=== PATIENT | female | born 1950 | race Caucasian/White ===

== ENCOUNTER 2020-11-24 18:54 | Emergency (ER) | payer MEDICARE, OTHER ==
[~2020-11-24] VITALS: Ht 165.1 cm; Wt 57.3 kg
[2020-11-24] MEDS ORDERED: VALT500T PO (19:04)
[2020-11-24] MEDS ORDERED: FORT600S SC (19:04)
[2020-11-24] MEDS ORDERED: IBUP-1114 PO (19:05)
--- NOTE | 2020-11-24 20:37 | REPVR ---
PROCEDURE INFORMATION: Exam: CT Head Without Contrast Exam date and time: 11/24/2020 8:04 PM Age: 70 years old Clinical indication: Injury or trauma; Fall; Blunt trauma (contusions or hematomas); Without loss of consciousness TECHNIQUE: Imaging protocol: Computed tomography of the head without contrast. Radiation optimization: All CT scans at this facility use at least one of these dose optimization techniques: automated exposure control; mA and/or kV adjustment per patient size (includes targeted exams where dose is matched to clinical indication); or iterative reconstruction. COMPARISON: No relevant prior studies available. FINDINGS: Brain: Calcification in the basal ganglia bilaterally. No hemorrhage. No mass effect. Midline structures are intact. Cerebral ventricles: No ventriculomegaly. Bones/joints: Hyperostosis frontalis interna. Paranasal sinuses: Visualized sinuses are unremarkable. No fluid levels. Mastoid air cells: Visualized mastoid air cells are well aerated. Soft tissues: Unremarkable. IMPRESSION: No acute findings Electronically signed by: Ileana Roach On 11/24/2020 20:37:21 PM
--- NOTE | 2020-11-24 20:43 | REPVR ---
PROCEDURE INFORMATION: Exam: CT Maxillofacial Without Contrast Exam date and time: 11/24/2020 8:04 PM Age: 70 years old Clinical indication: Injury or trauma; Fall; Blunt trauma (contusions or hematomas); Lip/oral cavity; Not specified TECHNIQUE: Imaging protocol: Computed tomography images of the face without contrast. Radiation optimization: All CT scans at this facility use at least one of these dose optimization techniques: automated exposure control; mA and/or kV adjustment per patient size (includes targeted exams where dose is matched to clinical indication); or iterative reconstruction. COMPARISON: No relevant prior studies available. FINDINGS: Orbital cavity: Orbits are normal. Globes are unremarkable. Bones/joints: Small fracture left nasal bone likely chronic. Irregularity noted of the articular surface of the mandibular condyles bilaterally no mandibular fracture. Paranasal sinuses: Minimal mucosal thickening in the right maxillary sinus. Soft tissues: Unremarkable. IMPRESSION: 1. No acute fracture 2. Probable chronic nondisplaced left nasal fracture. 3. 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
--- NOTE | 2020-11-24 20:49 | REPVR ---
PROCEDURE INFORMATION: Exam: CT Cervical Spine Without Contrast Exam date and time: 11/24/2020 8:04 PM Age: 70 years old Clinical indication: Injury or trauma; Fall; Blunt trauma TECHNIQUE: Imaging protocol: Computed tomography images of the cervical spine without contrast. Radiation optimization: All CT scans at this facility use at least one of these dose optimization techniques: automated exposure control; mA and/or kV adjustment per patient size (includes targeted exams where dose is matched to clinical indication); or iterative reconstruction. COMPARISON: No relevant prior studies available. FINDINGS: Vertebrae: No acute fracture. Normal alignment. C1-C2: Degenerative changes noted at the atlantoaxial interval bilaterally with small marginal osteophytes present. No fracture. C2-C3: No significant disc protrusion. No severe spinal canal stenosis. No significant neural foraminal narrowing. C3-C4: No significant disc protrusion. No severe spinal canal stenosis. No significant neural foraminal narrowing. C4-C5: No significant disc protrusion. No severe spinal canal stenosis. No significant neural foraminal narrowing. C5-C6: No significant disc protrusion. Mild uncovertebral hypertrophy. No severe spinal canal stenosis. No significant neural foraminal narrowing. C6-C7: No significant disc protrusion. No severe spinal canal stenosis. No significant neural foraminal narrowing. C7-T1: No significant disc protrusion. No severe spinal canal stenosis. No significant neural foraminal narrowing. Soft tissues: Unremarkable. Auditory system: Auditory: Cerumen in the right external auditory canal. Thyroid: 1.5 cm low-density nodule right lobe of the thyroid Lungs: Thin linear pleural based opacities noted bilaterally suggesting scar.. IMPRESSION: 1. No acute findings. 2. 1.5 cm nodule right lobe of the thyroid. Further evaluation with non-emergent thyroid ultrasound is recommended. COMMENTS: Consistent with the [employer]'s Incidental Findings Committee white paper (J Am Tejal [employer]iol 2015): In patients aged 35 years and older with an incidental thyroid nodule equal to or greater than 1.[address], MRI or extrathyroidal US, further evaluation with dedicated thyroid US is recommended for patients with normal life expectancy and without comorbidities. For smaller nodules without suspicious features, no further evaluation or follow up is recommended. Electronically signed by: Ileana Roach On 11/24/2020 20:48:44 PM
[2020-11-24] MEDS ORDERED: ACETAMINOPHEN 500 MG TAB PO ONE (21:00)
--- NOTE | 2020-11-24 21:18 | REPVR ---
PROCEDURE INFORMATION: Exam: XR Right Forearm Exam date and time: 11/24/2020 9:08 PM Age: 70 years old Clinical indication: Pain; Lower or forearm; Right; Additional info: Trauma TECHNIQUE: Imaging protocol: XR Right forearm. Views: 2 views. COMPARISON: No relevant prior studies available. FINDINGS: Bones/joints: Generalized decrease in bone density. No fracture or dislocation. Soft tissues: Normal. IMPRESSION: No acute findings Electronically signed by: Ileana Roach On 11/24/2020 21:18:00 PM
--- NOTE | 2020-11-24 21:20 | REPVR ---
PROCEDURE INFORMATION: Exam: XR Right Wrist Exam date and time: 11/24/2020 9:08 PM Age: 70 years old Clinical indication: Pain; Wrist; Right; Additional info: Trauma TECHNIQUE: Imaging protocol: XR Right wrist. Views: 3 or more views. COMPARISON: No relevant prior studies available. FINDINGS: Bones/joints: Narrowing of the 1st carpometacarpal joint. Small corticated bone fragment noted along the medial aspect of the 1st carpometacarpal joint. Mild ulnar plus variance. Soft tissues: Soft tissue swelling noted over the medial aspect of the wrist. IMPRESSION: Soft tissue swelling noted over the medial aspect of the wrist with ulnar plus variance. 2. Degenerative changes of 1st carpometacarpal joint Electronically signed by: Ileana Roach On 11/24/2020 21:20:01 PM
[2020-11-24 21:30] VITALS: BP 133/59
== END 2020-11-24 21:32 | disposition home or self-care (01) ==
LOC: M ED 18:54
DX: S09.90XA Unspecified injury of head, initial encounter (principal); W18.39XA Other fall on same level, initial encounter; Y92.480 Sidewalk as the place of occurrence of the external cause; M81.0 Age-related osteoporosis without current pathological fracture; Z88.5 Allergy status to narcotic agent; Z79.899 Other long term (current) drug therapy